=== PATIENT | male | born 1980 | race Two or more races ===

== ENCOUNTER 2022-12-21 14:00 | Emergency (ER) | payer OTHER ==
[~2022-12-21] VITALS: Ht 160 cm; Wt 95.3 kg
[2022-12-21] MEDS ORDERED: SYNTHROID75 MCG PO (14:20)
[2022-12-21] MEDS ORDERED: ZESTRIL20 MG PO (14:20)
== END 2022-12-21 18:18 | disposition home or self-care (01) ==
LOC: ER 14:00
DX: M54.50 Low back pain, unspecified (principal); M25.551 Pain in right hip; I10 Essential (primary) hypertension
CPT/HCPCS: 72100; 96372; 99283; J1885; J2360

== ENCOUNTER 2024-06-12 15:18 | Emergency (ER) | payer OTHER ==
[~2024-06-12] VITALS: Ht 160 cm; Wt 88.0 kg
[~2024-06-12 15:18] MED LIST: SYNTHROID75 MCG PO; ZESTRIL20 MG PO
[2024-06-12 17:37] LABS: HEMATOCRIT 43.4 % (39.0-48.0); HEMOGLOBIN 14.3 g/dL (13-16.00); MEAN CELL VOLUME 83.8 fL (80.0-100.00); MEAN CORPUSCULAR HEMOGLOBIN 27.6 pg (27.00-32.0); MEAN CORPUSCULAR HGB CONC 32.9 g/dl (32.0-36.0); PLATELET COUNT 227 K/uL (150-450); RED BLOOD COUNT 5.18 M/uL (4.00-6.00); RED CELL DISTRIBUTION WIDTH 14.8 % (11.5-14.5)
[2024-06-12 18:09] LABS: PH,URINE 5.5 (5.0-8.0); URINE APPEARANCE Clear; URINE BILIRRUBIN Negative (NEGATIVE); URINE BLOOD Negative; URINE COLOR Yellow; URINE GLUCOSE Negative (NEGATIVE); URINE KETONE Negative (NEGATIVE); URINE LEUKOCYTE Negative; URINE NITRATE Negative; URINE PROTEIN Negative (NEGATIVE); URINE UROBILINOGEN 0.2 E.U./dl
[2024-06-12 18:16] LABS: URINE BACTERIA 7.3 uL (0.0-1933); URINE WBC 2.8 uL (0.0-23.2)
[2024-06-12 18:24] LABS: URINE CAST 0.14 uL (0.0-1.40); URINE EPITHELIAL CELLS 0.4 uL (0.0-38.8); URINE RBC 1.1 uL (0.0-20.8)
[2024-06-12 18:32] LABS: BILIRUBIN TOTAL 0.37 mg/dL (0.3-1.2); CALCIUM 9.5 mg/dL (8.5-10.1); CREATININE SERUM 1.25 mg/dL (0.70-1.30); GFR 62.46; GLOBULINA 3.8 G/DL (2.4-3.5); POTASSIUM 4.24 mEq/L (3.5-5.1); TOTAL PROTEIN 7.8 gm/dL (6.4-8.2)
[2024-06-12] MEDS ORDERED: DICY20TA PO (21:41)
[2024-06-12] MEDS ORDERED: PEPCID AC20 MG PO (21:41)
== END 2024-06-12 21:59 | disposition home or self-care (01) ==
LOC: ER 15:21
PROVIDERS: Preventive Medicine Public Health & General Preventive Medicine
DX: R10.11 Right upper quadrant pain (principal); N28.1 Cyst of kidney, acquired; I10 Essential (primary) hypertension; E03.9 Hypothyroidism, unspecified